=== PATIENT | female | born 1990 | race Caucasian/White ===

== ENCOUNTER 2018-10-31 20:01 | Emergency (ER) | payer OTHER ==
[2018-10-31 20:08] VITALS: BP 122/74; PULSE 70; TEMP 98.3; BMI 28.5
[2018-10-31] MEDS ORDERED: ONDANSETRON 4 MG/2 ML VIAL IVPUSH ONE (20:08)
[2018-10-31] MEDS ORDERED: SODIUM CHLORIDE 1,000 ML IV STA (20:08)
--- NOTE | 2018-10-31 20:08 | PDOC ---
Rapid Medical Evaluation Time Seen by Provider: 10/31/18 20:06 Medical Evaluation: 10/31/18 20:06 Patient presents to ED with complaints of: pt constipated x 3 days and took a [place] named med . now with upper abd cramping, bloating, diarrhea and nausea patient on brief exam: vss, upper abd tenderness Patient ordered for: cbc, comp, iv, zofran, Patient to proceed to the ED Discharge Disposition - Diagnosis Adverse drug reaction - Discharge Dispostion Disposition: HOME Condition at time of disposition: Stable - Prescriptions Prescriptions: Dicyclomine HCl [Bentyl -] 20 mg PO Q6H PRN #28 tablet PRN Reason: abdominal pain Simethicone 125 mg PO TID PRN #14 capsule PRN Reason: Gas - Referrals Referrals: Tino Esquivel MD [Primary Care Provider] - - Patient Instructions Printed Discharge Instructions: DI for Abdominal Pain-Adult, DI for Adverse Drug Reaction -- GI Intolerance Additional Instructions: Please take medications as prescribed. Follow up with your primary care doctor within the next 3-5 days for continued monitoring of your symptoms. If you develop fever, persistent vomiting, worsening abdominal pain, or any new or worsening symptoms, please return to the ER. - Post Discharge Activity
[2018-10-31] MEDS ORDERED: ONDANSETRON 4 MG/2 ML VIAL ONE ×2 (20:50→22:24)
[2018-10-31 20:51] LABS: BASO % 0.7 % (0-2.0); EOS % 2.7 % (0-4.5); HEMATOCRIT 39.5 % (32.4-45.2); HEMOGLOBIN 13.3 GM/dL (10.7-15.3); LYMPH % 55.4 % (8-40); MCH 30.7 pg (25.7-33.7); MCHC 33.7 g/dl (32.0-36.0); MEAN CELL VOLUME 91.1 fl (80-96); MONO % 8.5 % (3.8-10.2); NEUT % 32.7 % (42.8-82.8); PLATELET COUNT 283 K/MM3 (134-434); RBC 4.34 M/mm3 (3.60-5.2); RDW 12.8 % (11.6-15.6); WHITE BLOOD COUNT 5.7 K/mm3 (4.0-10.0)
[2018-10-31] MEDS ORDERED: morphine CARPU-JECT 2 MG/1 ML DISP.SYRIN IVPUSH ONE (21:15)
[2018-10-31 21:18] LABS: ALBUMIN 3.7 g/dl (3.4-5.0); BILIRUBIN,TOTAL 0.2 mg/dL (0.2-1); BLOOD UREA NITROGEN 10.6 mg/dL (7-18); CALCIUM 9.3 mg/dL (8.5-10.1); CREATININE 0.8 mg/dL (0.55-1.3); TOT PROT 7.3 g/dl (6.4-8.2)
--- NOTE | 2018-10-31 21:35 | PDOC ---
History of Present Illness - General Chief Complaint: Pain Stated Complaint: ABD/PAIN/NAUSEA/DIARRHEA Time Seen by Provider: 10/31/18 20:06 - History of Present Illness Initial Comments: 10/31/18 21:16 CHIEF COMPLAINT: abdominal pain HISTORY OF PRESENT ILLNESS: 28 yo F with no significant PMH presents to fast track with abdominal pain. Patient states that her last BM was 3 days ago and she took a pill that was given to her by a friend "for constipation" today, and then she started having severe abdominal pain with 4-5 episodes of diarrhea. She reports nausea but denies any vomiting. No recent travel or sick contacts. PAST MEDICAL HISTORY: Denies past medical history FAMILY HISTORY: Denies SOCIAL HISTORY: Denies tobacco, alcohol, illicit drug use. SURGICAL HISTORY: Denies ALLERGIES: No known drug allergies REVIEW OF SYSTEMS General/Constitutional: Denies fever or chills. Denies weakness, weight change. HEENT: Denies change in vision. Denies ear pain or discharge. Denies sore throat. Cardiovascular: Denies chest pain or shortness of breath. Respiratory: Denies cough, wheezing, or hemoptysis. Gastrointestinal: Abdominal pain, diarrhea, 2 episodes of vomiting in this ED. Denies rectal bleeding. Genitourinary: Denies dysuria, frequency, or change in urination. Musculoskeletal: Denies joint or muscle swelling or pain. Denies neck or back pain. Skin and breasts: Denies rash or easy bruising. Neurologic: Denies headache, vertigo, loss of consciousness, or loss of sensation. Psychiatric: Denies depression or anxiety. PHYSICAL EXAM General Appearance: Well-appearing, appropriately dressed. No apparent distress. HEENT: EOMI, PERRLA, normal ENT inspection, normal voice, TMs normal, pharynx normal. No conjunctival pallor. No photophobia, scleral icterus. Neck: Supple. Trachea midline. No tenderness, rigidity, carotid bruit, stridor , lymphadenopathy, or thyromegaly. Respiratory/Chest: Lungs CTAB. No shortness of breath, chest tenderness, respiratory distress, accessory muscle use. No crackles, rales, rhonchi, stridor , wheezing, dullness Cardiovascular: RRR. S1, S2. No JVD, murmur, bradycardia, tachycardia. Vascular Pulses: Dorsalis-Pedis (R): 2+, Dorsalis-Pedis (L): 2+ Gastrointestinal/Abdominal: Marked tenderness and guarding to abdomen diffusely No organomegaly, pulsatile mass, hernia, hepatomegaly, splenomegaly. Musculoskeletal/Extremities: Normal inspection. FROM of all extremities, normal capillary refill. Pelvis Stable. No CVA tenderness. No tenderness to extremities, pedal edema, swelling, erythema or deformity. Integumentary: Appropriate color, dry, warm. 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 Fully oriented, alert. Appropriate mood/affect. Motor strength 5/5. No appreciable EOM palsy, facial droop or sensory deficit. 11/01/18 01:37 Past History - Past Medical History Allergies/Adverse Reactions: Allergies Allergy/AdvReac Type Severity Reaction Status Date / Time No Known Allergies Allergy Verified 10/31/18 20:08 Home Medications: Ambulatory Orders Dicyclomine HCl [Bentyl -] 20 mg PO Q6H PRN #28 tablet 11/01/18 Simethicone 125 mg PO TID PRN #14 capsule 11/01/18 COPD: No - Surgical History Abdominal Surgery: Yes (LIPO) - Suicide/Smoking/Psychosocial Hx Smoking History: Never smoked *Physical Exam - Vital Signs Last Vital Signs Temp Pulse Resp BP Pulse Ox 98.3 F 70 18 122/74 98 10/31/18 20:05 10/31/18 20:05 10/31/18 20:05 10/31/18 20:05 10/31/18 20:05 ED Treatment Course - LABORATORY CBC & Chemistry Diagram: 10/31/18 20:25 10/31/18 20:25 - ADDITIONAL ORDERS Additional order review: 10/31/18 20:25 RBC 4.34 MCV 91.1 MCHC 33.7 RDW 12.8 MPV 8.0 Neutrophils % 32.7 L Lymphocytes % 55.4 H Monocytes % 8.5 Eosinophils % 2.7 Basophils % 0.7 - RADIOLOGY Radiology Studies Ordered: Category Date Time Status ABDOMEN FLAT & UPRIGHT [RAD] Stat Radiology 10/31/18 21:04 Ordered Medical Decision Making - Medical Decision Making 10/31/18 21:35 28 yo F with no significant PMH presents to fast track with abdominal pain. -labs, zofran -KUB eval sbo 11/01/18 01:37 labs unremarkable. x-ray with moderate amount of retained stool. bentyl, simethicone, lactulose. Advised pt to f/u with PCP if symptoms persist and of signs and symptoms for return to ER; patient verbalized understanding and agrees to plan. *DC/Admit/Observation/Transfer Diagnosis at time of Disposition: Adverse drug reaction Qualifiers: Encounter type: initial encounter Qualified Code(s): T50.905A - Adverse effect of unspecified drugs, medicaments and biological substances, initial encounter - Discharge Dispostion Disposition: HOME Condition at time of disposition: Stable Decision to Admit order: No - Prescriptions Prescriptions: Dicyclomine HCl [Bentyl -] 20 mg PO Q6H PRN #28 tablet PRN Reason: abdominal pain Simethicone 125 mg PO TID PRN #14 capsule PRN Reason: Gas - Referrals Referrals: Tino Esquivel MD [Primary Care Provider] - - Patient Instructions Printed Discharge Instructions: DI for Abdominal Pain-Adult, DI for Adverse Drug Reaction -- GI Intolerance Additional Instructions: Please take medications as prescribed. Follow up with your primary care doctor within the next 3-5 days for continued monitoring of your symptoms. If you develop fever, persistent vomiting, worsening abdominal pain, or any new or worsening symptoms, please return to the ER. - Post Discharge Activity
--- NOTE | 2018-10-31 21:56 | PDOC ---
*Physical Exam - Vital Signs Last Vital Signs Temp Pulse Resp BP Pulse Ox 98.3 F 70 18 122/74 98 10/31/18 20:05 10/31/18 20:05 10/31/18 20:05 10/31/18 20:05 10/31/18 20:05 ED Treatment Course - LABORATORY CBC & Chemistry Diagram: 10/31/18 20:25 10/31/18 20:25 - ADDITIONAL ORDERS Additional order review: 10/31/18 20:25 RBC 4.34 MCV 91.1 MCHC 33.7 RDW 12.8 MPV 8.0 Neutrophils % 32.7 L Lymphocytes % 55.4 H Monocytes % 8.5 Eosinophils % 2.7 Basophils % 0.7 Medical Decision Making - Medical Decision Making 10/31/18 21:03 Patient seen by the advanced practice provider under my direct supervision. Ancillary testing reviewed as necessary. I agree with plan as outlined by the advanced practice provider. *DC/Admit/Observation/Transfer Diagnosis at time of Disposition: Abdominal pain - Referrals Referrals: Tino Esquivel MD [Primary Care Provider] - - Patient Instructions - Post Discharge Activity
[2018-10-31] MEDS ORDERED: MORPHINE SULFATE 2 MG/ML VIAL ONE (22:23)
[2018-11-01] MEDS ORDERED: SODIUM PHOSPHATE/NA BIPHOS 133 ML ENEMA PR ONE (00:45)
[2018-11-01] MEDS ORDERED: LACTULOSE 20 GM/30 ML UDC (FOR ORAL USE ONLY) PO ONE (00:46)
[2018-11-01] MEDS ORDERED: SIMETHICONE 80 MG TAB.CHEW (FP) PO ONE (00:50)
[2018-11-01] MEDS ORDERED: DICYCLOMINE HCL 20 MG TABLET PO ONE (01:11)
[2018-11-01] MEDS ORDERED: LACTULOSE 20 GM/30 ML UDC (FOR ORAL USE ONLY) ONE (01:14)
[2018-11-01] MEDS ORDERED: DICYCLOMINE HCL 10 MG CAPSULE ONE (01:14)
== END 2018-11-01 01:17 | disposition home or self-care (01) ==
LOC: JER 20:01
PROC: 3E033GC Introduction of Other Therapeutic Substance into Peripheral Vein, Percutaneous Approach (ICD-10-PCS; principal; 2018-10-31)
PROC: 3E033NZ Introduction of Analgesics, Hypnotics, Sedatives into Peripheral Vein, Percutaneous Approach (ICD-10-PCS; 2018-10-31)
DX: K59.00 Constipation, unspecified (principal); R10.9 Unspecified abdominal pain; T50.995A Adverse effect of other drugs, medicaments and biological substances, initial encounter; Y92.018 Other place in single-family (private) house as the place of occurrence of the external cause
CPT/HCPCS: 36415; 74019-TC-FY; 80053; 83690; 84703; 85025; 99283-25; J7030